=== PATIENT | female | born 1980 | race African-American/Black ===

== ENCOUNTER 2018-01-02 06:53 | Emergency (ER) | payer OTHER, BC ==
[2018-01-02 07:16] LABS: URINE HCG POC HCG NEGATIVE (Negative)
[2018-01-02] MEDS: LIDO:MAALOX:DONNATAL 1:1:1 15 ML SINGLE DOSE SWSW (07:18)
[2018-01-02] MEDS: ONDANSETRON ODT 4 MG TAB.RAPDIS. PO (07:24)
[2018-01-02 07:58] LABS: BILIRUBIN,URINE NEGATIVE (NEG); CLARITY,URINE CLEAR; COLOR,URINE YELLOW; GLUCOSE,URINE NEGATIVE (NEG); NITRITE,URINE NEGATIVE (NEG); PH,URINE 5.5; PROTEIN,URINE NEGATIVE (NEG-TRACE); UROBILINOGEN,URINE 0.2 mg/dL (0.2 mg/dL)
[2018-01-02 08:02] LABS: BASO % 0 % (0-3); EOS # 0.1 x10^3/uL (0.0-0.7); EOS % 1 % (0-3); HEMOGLOBIN 16.2 g/dL (12.0-15.5); LYMPH # 1.4 x10^3/uL (1.0-4.8); LYMPH % 8 % (24-48); MEAN CORPUSCULAR HEMOGLOBIN 29 pg (25-35); MEAN CORPUSCULAR HGB CONC 34 g/dL (31-37); MEAN CORPUSCULAR VOLUME 86 fL (79-100); MONO # 0.6 x10^3/uL (0.0-1.1); MONO % 4 % (0-9); NEUT # 14.6 x10^3uL (1.8-7.7); NEUT % 87 % (31-73); PLATELET COUNT 316 x10^3/uL (140-400); RED BLOOD COUNT 5.57 x10^6/uL (3.50-5.40); WHITE BLOOD COUNT 16.8 x10^3/uL (4.0-11.0)
[2018-01-02] MEDS: FAMOTIDINE 20 MG/2 ML VIAL IVP (08:03)
[2018-01-02 08:04] LABS: ADD MAN DIFF? YES
[2018-01-02] MEDS: MORPHINE SULFATE 2 MG/ML DISP.SYRIN. IV (08:04)
[2018-01-02 08:06] LABS: SQUAMOUS EPITHELIAL CELL,UR MOD /LPF
[2018-01-02 08:07] LABS: BACTERIA,URINE 0 /HPF (0-FEW); RBC,URINE 0 /HPF (0-2); WBC,URINE OCC /HPF (0-4)
[2018-01-02 08:12] LABS: ANION GAP 15 (6-14); BLOOD UREA NITROGEN 10 mg/dL (7-20); BUN/CREATININE RATIO 10 (6-20); CALCIUM 9.2 mg/dL (8.5-10.1); CARBON DIOXIDE 21 mmol/L (21-32); CHLORIDE 105 mmol/L (98-107); GFR 75.5; GLUCOSE 118 mg/dL (70-99); POTASSIUM 3.5 mmol/L (3.5-5.1); SODIUM 141 mmol/L (136-145)
[2018-01-02] MEDS ORDERED: CONTRAST GIVEN MC (08:15)
[2018-01-02 08:19] LABS: ALBUMIN 3.7 g/dL (3.4-5.0); ALBUMIN/GLOBULIN RATIO 0.8 (1.0-1.7); ALK PHOS 95 U/L (46-116); ALT (SGPT) 25 U/L (14-59); AST (SGOT) 14 U/L (15-37); TOTAL BILIRUBIN 0.6 mg/dL (0.2-1.0); TOTAL PROTEIN 8.4 g/dL (6.4-8.2)
[2018-01-02] MEDS: IOHEXOL 300 MG/ML 100ML VIAL. IV (08:27)
[2018-01-02] MEDS: ONDANSETRON PF 4 MG/2 ML VIAL. IV (09:29)
[2018-01-02] MEDS: MORPHINE SULFATE 4 MG/ML DISP.SYRIN. IV (09:31)
[2018-01-02 11:06] LABS: % BANDS 3 % (0-9); % EOS 3 % (0-5); % LYMPHS 5 % (24-48); % MONOS 2 % (0-10); % SEGS 87 % (35-66); PLT ESTIMATE ADEQUATE (ADEQUATE); TOXIC VACUOLATION PRESENT
== END 2018-01-02 09:33 | disposition home or self-care (01) ==
LOC: ER 06:53
DX: R10.13 Epigastric pain (principal); K21.9 Gastro-esophageal reflux disease without esophagitis; J45.909 Unspecified asthma, uncomplicated; Z86.711 Personal history of pulmonary embolism; Z88.2 Allergy status to sulfonamides; Z88.8 Allergy status to other drugs, medicaments and biological substances
CPT/HCPCS: 36415; 74177; 80053; 81001; 81025; 85007; 85025; 96374; 96375; 96376; 99285-25; J2270; J2405; Q0162; Q9967; S0028